=== PATIENT | male | born 1990 ===

== ENCOUNTER 2018-01-31 18:14 | Emergency (ER) | payer MEDICAID ==
[2018-01-31 18:22] VITALS: TEMP 98.8; O2SAT 98
[2018-01-31] MEDS ORDERED: Sodium Chloride 0.9% 1,000 ML IV STA (19:38)
[2018-01-31 20:25] LABS: URINE BILIRUBIN NEGATIVE (NEGATIVE); URINE BLOOD NEGATIVE (NEGATIVE); URINE GLUCOSE (UA) NEGATIVE (NEGATIVE); URINE LEUKOCYTE ESTERASE NEGATIVE Leu/uL (NEGATIVE); URINE NITRATE NEGATIVE (NEGATIVE); URINE PROTEIN NEGATIVE mg/dL (<30 mg/dL)
[2018-01-31 20:28] LABS: ALB/GLOB RATIO 1.3 (1.1-1.8); ALBUMIN 4.4 g/dL (3.0-4.8); ALT/SGPT 25 U/L (7-56); AST/SGOT 26 U/L (17-59); BLOOD UREA NITROGEN 15 mg/dL (7-21); CALCIUM 10.2 mg/dL (8.4-10.5); GFR AFRICAN-AMERICAN > 60; GFR NON-AFRICAN AMERICAN > 60; URINE APPEARANCE SL CLOUDY (CLEAR); URINE COLOR YELLOW (YELLOW)
[2018-01-31 20:32] LABS: BASO # 0.03 K/mm3 (0.0-2.0); BASO % 0.3 % (0.0-3.0); EOS # 0.4 (0.0-0.7); EOS % 4.3 % (1.5-5.0); GRAN # 6.45 (1.4-6.5); GRAN % 65.2 % (50.0-68.0); HEMOGLOBIN 15.7 g/dL (14.0-18.0); LYMPH # 2.3 (1.2-3.4); LYMPH % 22.9 % (22.0-35.0); MEAN CELL VOLUME 90.4 fl (80.0-105.0); MEAN CORPUSCULAR HEMOGLOBIN 30.7 pg (25.0-35.0); MEAN CORPUSCULAR HGB CONC 33.9 g/dl (31.0-37.0); MONO # 0.7 (0.1-0.6); MONO % 7.3 % (1.0-6.0); RBC 5.12 10^6/uL (3.5-6.1); RED CELL DISTRIBUTION WIDTH 13.1 % (11.5-14.5); WHITE BLOOD COUNT 9.9 10^3/ul (4.5-11.0)
--- NOTE | 2018-01-31 21:12 | ED PDOC ---
Arrival/HPI - General Historian: Patient - General Chief Complaint: Back Pain Time Seen by Provider: 01/31/18 19:38 - History of Present Illness Narrative History of Present Illness (Text): 01/31/18 21:08 27-year-old male presents today with a 2-3 day history of left sided flank pain. Patient denies numbness weakness or tingling in extremity. Denies any trauma or injury. Patient states the pain is constant and rates the pain as a 6 out of 10. Patient denies abdominal pain. Denies testicular pain. Denies dysuria. 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 Patient denies lifting heavy objects at home. Patient states that he has had this similar pain in the past and was told that he had a kidney stone. Patient denies hematuria. Denies penile discharge. No medications have been taken for pain at home today. Patient states he took Advil for pain yesterday. patient denies bladder or bowel incontinence. Patient denies numbness weakness or tingling in the extremities. Patient denies saddle paresthesias. (Sara Robbins) Past Medical History - Provider Review Nursing Documentation Reviewed: Yes - Travel History Have you recently traveled outside [place] w/in the past 3 mons?: No - Tetanus Immunization Tetanus Immunization: Unknown - Cardiac Hx Cardiac Disorders: No - Pulmonary Hx Respiratory Disorders: No - Neurological Hx Neurological Disorder: No - HEENT Hx HEENT Disorder: No - Renal Hx Renal Disorder: Yes Hx Kidney Stones: Yes - Endocrine/Metabolic Hx Endocrine Disorders: No - Hematological/Oncological Hx Blood Disorders: No - Integumentary Hx Dermatological Disorder: No - Musculoskeletal/Rheumatological Hx Musculoskeletal Disorders: No - Gastrointestinal Hx Gastrointestinal Disorders: No - Genitourinary/Gynecological Hx Genitourinary Disorders: No - Psychiatric Hx Psychophysiologic Disorder: No Hx Substance Use: No - Surgical History Hx Appendectomy: Yes Family/Social History - Physician Review Nursing Documentation Reviewed: Yes Family/Social History: Unknown Family HX Smoking Status: Never Smoked Hx Alcohol Use: Yes Frequency of alcohol use: Socially Hx Substance Use: No Allergies/Home Meds Allergies/Adverse Reactions: Allergies No Known Allergies Allergy (Verified 01/31/18 18:18) Review of Systems - Review of Systems Constitutional: absent: Fatigue, Fevers Respiratory: absent: SOB, Cough Cardiovascular: absent: Chest Pain, Palpitations Gastrointestinal: absent: Abdominal Pain, Constipation, Diarrhea, Nausea, Vomiting Genitourinary Male: absent: Dysuria, Frequency, Hematuria, Urinary Output Changes Musculoskeletal: Back Pain. absent: Arthralgias, Neck Pain Skin: absent: Rash, Pruritis Psychiatric: absent: Anxiety, Depression Physical Exam Vital Signs Reviewed: Yes Temperature: Afebrile Blood Pressure: Normal Pulse: Regular Respiratory Rate: Normal Appearance: Positive for: Well-Appearing, Non-Toxic, Comfortable Pain Distress: None Mental Status: Positive for: Alert and Oriented X 3 - Systems Exam Head: Present: Atraumatic Mouth: Present: Moist Mucous Membranes Neck: Present: Normal Range of Motion Respiratory/Chest: Present: Clear to Auscultation, Good Air Exchange. No: Respiratory Distress, Accessory Muscle Use Cardiovascular: Present: Regular Rate and Rhythm, Normal S1, S2. No: Murmurs Abdomen: Present: Normal Bowel Sounds. No: Tenderness, Distention, Peritoneal Signs, Rebound, Guarding Back: Present: Normal Inspection, Paraspinal Tenderness (+ minimal left flank and left sided paraspinal tenderness. ). No: CVA Tenderness, Midline Tenderness Upper Extremity: Present: Normal Inspection, Normal ROM Lower Extremity: Present: Normal Inspection, Normal ROM Neurological: Present: GCS=15, Speech Normal Skin: Present: Warm, Dry, Normal Color. No: Rashes Psychiatric: Present: Alert, Oriented x 3 Vital Signs Temp Pulse Resp BP Pulse Ox 01/31/18 22:32 87 18 122/80 98 01/31/18 18:21 98.8 F 88 17 125/83 98 Medical Decision Making Reassessment Condition: Re-examined, Improved ED Course and Treatment: 01/31/18 22:17 CT Abdomen and Pelvis Without Intravenous Contrast EXAM DATE/TIME: 01/31/2018 7:38 PM Dictated and Authenticated by: Kasie Nogueira MD 01/31/2018 9:53 PM Eastern Time ([place] & [place]) CLINICAL HISTORY: 27 years old, male; Pain; Abdominal pain; Flank; Left; Additional info: Left flank pain TECHNIQUE: Axial computed tomography images of the abdomen and pelvis without intravenous contrast. All CT scans at this facility use one or more dose reduction techniques, viz.: automated exposure control; ma/kV adjustment per patient size (including targeted exams where dose is matched to indication; i.e. head); or iterative reconstruction technique. COMPARISON: No relevant prior studies available. FINDINGS: Lower thorax: No acute findings. ABDOMEN: Liver: Unremarkable. Gallbladder and bile ducts: Unremarkable. No calcified stones. No ductal dilation. Pancreas: Unremarkable. No ductal dilation. Spleen: Unremarkable. No splenomegaly. Adrenals: Unremarkable. No mass. Kidneys and ureters: There are multiple non-obstructing bilateral renal calculi. Stomach and bowel: Unremarkable. No obstruction. No mucosal thickening. Appendix: The appendix is surgically absent. PELVIS: Bladder: Unremarkable. No stones. Reproductive: Unremarkable as visualized. ABDOMEN and PELVIS: Intraperitoneal space: Unremarkable. No free air. No significant fluid collection. Bones/joints: No acute fracture. No dislocation. Soft tissues: Unremarkable. Vasculature: Unremarkable. No abdominal aortic aneurysm. Lymph nodes: Unremarkable. No enlarged lymph nodes. IMPRESSION: Nephrolithiasis, without acute obstructive uropathy. 01/31/18 22:19 CT appreciated. No urological cause of flank pain. Will DC Home with Motrin and Flexeril (Jak Elizabeth) 01/31/18 21:10 Patient is nontoxic well appearing with stable vital signs presenting with left sided flank pain. hx of kidney stones in the past. CBC wnl CMP wnl Urinalysis + ketones, toradol and flexeril given. NS iv bolus given. Patient reassessment: pt is non toxic well appearing; no distress. stable vitals. CAT scan: case signed out to dr. elizabeth pending CT results. Impression: back pain Motrin every 6 hours as needed for pain flexeril; 1 tablet every 8 hours as needed for muscle spasms; may cause drowsiness. Follow up with primary care physician within the next 2 days Return immediately if symptoms worsen persist or if new symptoms develop: High fevers, increasing pain, vomiting, diarrhea or any other concerning symptoms develop (Sara Robbins) - Lab Interpretations Lab Results: 01/31/18 20:00 01/31/18 20:00 Lab Results 01/31/18 20:00: WBC 9.9, RBC 5.12, Hgb 15.7, Hct 46.3, MCV 90.4, MCH 30.7, MCHC 33.9, RDW 13.1, Plt Count 187, MPV 12.0 H, Gran % 65.2, Lymph % (Auto) 22.9, [place] % (Auto) 7.3 H, Eos % (Auto) 4.3, Baso % (Auto) 0.3, Gran # 6.45, Lymph # ( Auto) 2.3, [place] # (Auto) 0.7 H, Eos # (Auto) 0.4, Baso # (Auto) 0.03 01/31/18 20:00: Sodium 143, Potassium 4.0, Chloride 103, Carbon Dioxide 31, Anion Gap 13, BUN 15, Creatinine 0.9, Est GFR ( Amer) > 60, Est GFR (Non- Af Amer) > 60, Random Glucose 97, Calcium 10.2, Total Bilirubin 0.7, AST 26, ALT 25, Alkaline Phosphatase 73, Total Protein 7.9, Albumin 4.4, Globulin 3.5, Albumin/Globulin Ratio 1.3 01/31/18 20:00: Urine Color Yellow, Urine Appearance Sl cloudy, Urine pH 8.0, Ur Specific [place] 1.010, Urine Protein Negative, Urine Glucose (UA) Negative, Urine Ketones Trace H, Urine Blood Negative, Urine Nitrate Negative, Urine Bilirubin Negative, Urine Urobilinogen 1.0 H, Ur Leukocyte Esterase Negative - RAD Interpretation Radiology Orders: 01/31/18 19:38 ABD & PELVIS W/O PO OR IV CONT [CT] Stat - Medication Orders Current Medication Orders: Discontinued Medications Sodium Chloride (Sodium Chloride 0.9%) 1,000 mls @ 999 mls/hr IV .Q1H1M STA Stop: 01/31/18 20:38 Last Admin: 01/31/18 20:29 Dose: 999 mls/hr eMAR Start Stop Document 01/31/18 20:29 SS (Rec: 01/31/18 20:29 SS [place] [id number]) Intravenous Solution Start Date 01/31/18 Start Time 20:29 End Date 01/31/18 End time 21:29 Total Infusion Time 60 Ketorolac Tromethamine (Toradol) 30 mg IVP STAT STA Stop: 01/31/18 19:39 Last Admin: 01/31/18 20:29 Dose: 30 mg MAR Pain Assessment Document 01/31/18 20:29 SS (Rec: 01[facility]31/18 20:29 [facility] Pain Reassessment Is this a pain reassessment? No Sleep Is patient sleeping during reassessment? No Presence of Pain Presence of Pain Yes Location Pain Location Body Site Back Description Description Constant Intensity of Pain at present 8 IVP Administration Document 01/31/18 20:29 SS (Rec: 01/31/18 20:29 SS [id number]) Charges for Administration # of IVP Administrations 1 Disposition/Present on Arrival - Present on Arrival Any Indicators Present on Arrival: No History of DVT/PE: No History of Uncontrolled Diabetes: No Urinary Catheter: No History of Decub. Ulcer: No History Surgical Site Infection Following: None - Disposition Have Diagnosis and Disposition been Completed?: Yes Disposition Time: 22:20 Patient Plan: Discharge - Disposition Diagnosis: Back pain Disposition: HOME/ ROUTINE Condition: GOOD Discharge Instructions (ExitCare): Low Back Pain (DC) Additional Instructions: Motrin every 6 hours as needed for pain flexeril; 1 tablet every 8 hours as needed for muscle spasms; may cause drowsiness. Follow up with primary care physician within the next 2 days Return immediately if symptoms worsen persist or if new symptoms develop: High fevers, increasing pain, vomiting, diarrhea or any other concerning symptoms develop Prescriptions: Cyclobenzaprine [Cyclobenzaprine HCl] 10 mg PO Q8 #10 tab Ibuprofen [Motrin] 600 mg PO Q6H PRN #20 tab PRN Reason: pain/fever reduction Referrals: Ho June MD [Staff Provider] - Follow up with primary Ysabel Good MD [Staff Provider] - Follow up with primary Eagle Cornejo MD [Staff Provider] - Follow up with primary Forms: [employer] (Hungarian), WORK NOTE
[2018-01-31 23:08] VITALS: BP 122/80; PULSE 87; RESP 18
--- NOTE | 2018-02-01 10:29 | CT ---
PROCEDURE: CT Abdomen and Pelvis without intravenous contrast HISTORY: left flank pain COMPARISON: None. TECHNIQUE: Without contrast. Contrast Dose: Radiation dose: Total exam DLP = 339 mGy-cm. This CT exam was performed using one or more of the following dose reduction techniques: Automated exposure control, adjustment of the mA and/or kV according to patient size, and/or use of iterative reconstruction technique. FINDINGS: LOWER THORAX: Unremarkable. LIVER: Unremarkable. No gross lesion or ductal dilatation. GALLBLADDER AND BILE DUCTS: Unremarkable. PANCREAS: Unremarkable. No gross lesion or ductal dilatation. SPLEEN: Unremarkable. ADRENALS: Unremarkable. No mass. KIDNEYS AND URETERS: Small nonobstructing stones are seen in both kidneys. There are no ureteral stones VASCULATURE: Unremarkable. No aortic aneurysm. BOWEL: Unremarkable. No obstruction. No gross mural thickening. APPENDIX: Unremarkable. Normal appendix. PERITONEUM: Unremarkable. No free fluid. No free air. LYMPH NODES: Unremarkable. No enlarged lymph nodes. BLADDER: Unremarkable. REPRODUCTIVE: Unremarkable. BONES: No acute fracture. OTHER FINDINGS: The report concurs with the preliminary [facility] report IMPRESSION: Nephrolithiasis. No evidence of obstructive uropathy
== END 2018-01-31 23:20 | disposition home or self-care (01) ==
LOC: ED 18:14
DX: M54.9 Dorsalgia, unspecified (principal)
CPT/HCPCS: 74176; 80053; 81003; 85025; 96361; 96374; 99283; J1885; J7040